=== PATIENT | female | born 1990 | race Caucasian/White ===

== ENCOUNTER → 2016-07-10 | Outpatient (CLI) | payer MEDICAID ==
[2016-07-10 19:53] LABS: BASO # 0.1 K/mm3 (0.0-0.2); BASO % 0.7 % (0.0-1.0); EOS # 0.3 K/mm3 (0.0-0.50); EOS % 2.9 % (0.0-3.0); LARGE UNSTAINED CELL # 0.2 K/mm3 (0.0-0.4); LARGE UNSTAINED CELL % 1.7 % (0.0-4.0); LYMPH # 2.8 K/mm3 (1.5-6.5); LYMPH % 25.9 % (24.0-44.0); MEAN CORPUSCULAR HEMOGLOBIN 30.2 pg (27.0-33.0); MEAN CORPUSCULAR HGB CONC 33.9 g/dl (32.0-36.5); MONO # 0.5 K/mm3 (0.0-0.8); NEUTROPHILS # 6.5 K/mm3 (1.8-7.7); NEUTROPHILS % 63.9 % (36.0-66.0); PLATELET COUNT, AUTOMATED 273 k/mm3 (150-450)
[2016-07-11 10:55] LABS: WHITE BLOOD COUNT 10.2 K/mm3 (4.0-10.0)
[2016-07-12 10:31] LABS: HBsAg Prenatal NEGATIVE (NEGATIVE)
== END ==
LOC: M WUC 15:54
PROVIDERS: ATTEND Specialist
DX: Z34.81 Encounter for supervision of other normal pregnancy, first trimester (principal)

== ENCOUNTER 2016-08-12 18:27 | Emergency (ER) | payer MEDICAID, OTHER ==
[~2016-08-12] VITALS: Ht 152.4 cm; Wt 77.1 kg
[2016-08-12] MEDS ORDERED: prenatal otc PO (18:44)
[2016-08-12] MEDS ORDERED: ZYRT10CA PO (18:44)
[2016-08-12 19:31] LABS: INR 0.94
[2016-08-12 19:33] LABS: ANION GAP 9 MEQ/L (8-16); BLOOD UREA NITROGEN 5 MG/DL (7-18); CALCIUM LEVEL 8.8 MG/DL (8.5-10.1); CARBON DIOXIDE LEVEL 25 MEQ/L (21-32); CHLORIDE LEVEL 106 MEQ/L (98-107); CREATININE FOR GFR 0.55 MG/DL (0.55-1.02); GLOMERULAR FILTRATION RATE > 60.0 (>60); GLUCOSE, FASTING 95 MG/DL (70-105); POTASSIUM SERUM 3.8 MEQ/L (3.5-5.1); SODIUM LEVEL 140 MEQ/L (136-145)
[2016-08-12 22:23] LABS: BASO % 0.3 % (0.0-1.0); EOS # 0.2 K/mm3 (0.0-0.50); EOS % 2.5 % (0.0-3.0); LARGE UNSTAINED CELL # 0.1 K/mm3 (0.0-0.4); LARGE UNSTAINED CELL % 1.4 % (0.0-4.0); LYMPH # 2.5 K/mm3 (1.5-6.5); LYMPH % 23.3 % (24.0-44.0); MEAN CORPUSCULAR HEMOGLOBIN 30.3 pg (27.0-33.0); MEAN CORPUSCULAR HGB CONC 34.5 g/dl (32.0-36.5); MEAN CORPUSCULAR VOLUME 87.8 fl (80.0-96.0); MONO # 0.5 K/mm3 (0.0-0.8); MONO % 4.5 % (0.0-5.0); NEUTROPHILS # 6.8 K/mm3 (1.8-7.7); NEUTROPHILS % 67.9 % (36.0-66.0); PLATELET COUNT, AUTOMATED 305 k/mm3 (150-450); RED CELL DISTRIBUTION WIDTH 12.2 % (11.5-14.5)
--- NOTE | 2016-08-12 22:30 | REPUSA ---
Clinical history: spotting, cramping. Findings: Real-time transabdominal and transvaginal ultrasound images of the pelvis were obtained. An anteverted uterus is noted, measuring 10.2 x 6.6 x 7.4 cm. There is a single intrauterine gestation with a mean sac diameter of 53.2 mm. A pole is noted. The crown rump length measures 29.9 mm, which measures to 9 weeks 6 days. heart tones are not identified at this time however. The uter us demonstrates normal echotexture and echogenicity. The right ovary measures 1.6 x 1.6 x 2.4 cm. Th e left ovary measures 2.1 x 1.9 x 2.3 cm. No adnexal masses are seen. Color Doppler flow is seen wit hin both ovaries. There is no evidence of free fluid. Impression: Findings consistent with demise.
[2016-08-12] MEDS ORDERED: PERC5TAB6 PO (23:24)
[2016-08-13] MEDS ORDERED: OXYCODONE/APAP 5MG/325MG(BULK FOR ED) 1 TABLET PO ONE
[2016-08-13 00:04] VITALS: BP 162/84
== END 2016-08-13 00:06 | disposition home or self-care (01) ==
LOC: M ED 21:42
DX: O03.4 Incomplete spontaneous abortion without complication (principal)

== ENCOUNTER → 2016-08-13 | Day surgery (SDC) | payer OTHER ==
[~2016-08-13] MED LIST: KETOROLAC 30 MG/ML VIAL (J1885) IV SCH; LIDOCAINE 2% INJ 100 MG/5 ML SDV (FOR ANES.) As Ordered ONE; LR 1,000 ML IV ONE; LR 1,000 ML IV SCH; METHYLERGONOVINE MALEATE 0.2 MG/ML VIAL (J2210) As Ordered ONE; METOCLOPRAMIDE INJ 10MG/2ML VIAL (J2765) As Ordered ONE; MIDAZOLAM INJ 2 MG/2 ML VIAL (J2250) As Ordered ONE; MORPHINE 2 MG/ML 1ML SYRINGE IV PRN; ONDANSETRON 4MG/2ML VIAL (J2405) As Ordered ONE; ONDANSETRON 4MG/2ML VIAL (J2405) IV PRN; PERC5TAB6 PO; PERCOCET 5MG/325MG TAB PO PRN; PROPOFOL 200 MG/20 ML VIAL As Ordered ONE; ZYRT10CA PO; dexameTHASONE 4 MG/ML 1ML VIAL (J1100) As Ordered ONE; fentaNYL 100 MCG/2 ML INJECTION (J3010) As Ordered ONE; fentaNYL 100 MCG/2 ML INJECTION (J3010) IV PRN; prenatal otc PO
[2016-08-13 14:03] LABS: MEAN CORPUSCULAR HEMOGLOBIN 30.4 pg (27.0-33.0); MEAN CORPUSCULAR HGB CONC 34.4 g/dl (32.0-36.5); MEAN CORPUSCULAR VOLUME 88.4 fl (80.0-96.0); RED CELL DISTRIBUTION WIDTH 12.2 % (11.5-14.5); WHITE BLOOD COUNT 12.2 K/mm3 (4.0-10.0)
--- NOTE | 2016-08-13 16:18 | RO ---
DATE OF PROCEDURE: 08/13/2016 PREPROCEDURE DIAGNOSIS: Intrauterine embryonic demise. POSTPROCEDURE DIAGNOSIS: Intrauterine embryonic demise. PROCEDURE: Sharp and suction dilatation and curettage. SURGEON: Franchesca Britt MD MOTOR BUS DRIVER: None. ANESTHESIA: General by laryngeal mask airway. SPECIMEN: intrauterine contents URINE: 400ml INTRAVENOUS FLUIDS: 100ml LR ESTIMATED BLOOD LOSS: 150ml INDICATION FOR OPERATION: Mrs. Macedo is a 26-year-old 1 at 11 weeks 3 days by a 7 week ultrasound presented to the emergency department this morning and left the bathroom, bleeding and cramping. Upon evaluation she was diagnosed with intrauterine embryonic demise at 9 weeks. She was counseled on her options for treatment and desired surgical option of dilatation and curettage. DESCRIPTION OF OPERATION: After informed consent was obtained and written consent was reviewed, the patient was brought to the operating room where laryngeal mask airway anesthesia was obtained. She was then placed in the lithotomy position, and was prepped and draped in a normal sterile fashion. A time out in the operating room was then performed identifying the patient, procedure to be performed as well as drug allergies. A bivalve speculum was then placed revealing the cervix. The anterior lip of the cervix was then grasped with a single tooth tenaculum. The cervix appeared already partially dilated. It was further dilated with Hanks dilators. A #9 curved uterine curette was then advanced into the cervical os to the level of the fundus and the uterus was curetted in a 360 degrees fashion with moderate amounts of tissue obtained. This was performed for a total of four times, with each time obtaining tissue. A sharp curette was then advanced into the cervical os and once again, uterus was curetted in a 360 degrees fashion with just minimal amounts of tissue obtained. A final pass with the suction curette was then performed productive of moderate amounts of blood. The curette was removed. Moderate amounts of bleeding. The uterus was compressed down, Methergine was given and hemostasis was achieved. The instruments were then removed from the patient's vagina. In and out catheter was then performed productive of 400 mL of clear urine. The patient was then taken out of lithotomy position, was awakened from general anesthesia and taken to recovery in stable condition. RED
[2016-08-13 17:40] VITALS: BP 138/73
== END | disposition home or self-care (01) ==
LOC: M SDC 11:19
PROVIDERS: ATTEND Obstetrics & Gynecology
DX: O02.1 Missed abortion (principal)

== ENCOUNTER → 2016-11-21 | Outpatient (CLI) | payer OTHER ==
[~2016-11-21] MED LIST changes: -KETOROLAC 30 MG/ML VIAL (J1885) IV SCH; -LIDOCAINE 2% INJ 100 MG/5 ML SDV (FOR ANES.) As Ordered ONE; -LR 1,000 ML IV ONE; -LR 1,000 ML IV SCH; -METHYLERGONOVINE MALEATE 0.2 MG/ML VIAL (J2210) As Ordered ONE; -METOCLOPRAMIDE INJ 10MG/2ML VIAL (J2765) As Ordered ONE; -MIDAZOLAM INJ 2 MG/2 ML VIAL (J2250) As Ordered ONE; -MORPHINE 2 MG/ML 1ML SYRINGE IV PRN; -ONDANSETRON 4MG/2ML VIAL (J2405) As Ordered ONE; -ONDANSETRON 4MG/2ML VIAL (J2405) IV PRN; +PERC5TAB12 PO; -PERC5TAB6 PO; -PERCOCET 5MG/325MG TAB PO PRN; -PROPOFOL 200 MG/20 ML VIAL As Ordered ONE; -dexameTHASONE 4 MG/ML 1ML VIAL (J1100) As Ordered ONE; -fentaNYL 100 MCG/2 ML INJECTION (J3010) As Ordered ONE; -fentaNYL 100 MCG/2 ML INJECTION (J3010) IV PRN
== END ==
LOC: M WUC 17:21
PROVIDERS: ATTEND Obstetrics & Gynecology
DX: Z32.01 Encounter for pregnancy test, result positive (principal)

== ENCOUNTER → 2016-11-23 | Outpatient (CLI) | payer OTHER | LOC: M WUC 08:52 | PROVIDERS: ATTEND Obstetrics & Gynecology | DX: Z32.01 Encounter for pregnancy test, result positive (principal) ==

== ENCOUNTER → 2016-12-26 | Outpatient (CLI) | payer OTHER ==
[2016-12-26 17:14] LABS: BASO % 0.2 % (0.0-1.0); EOS # 0.1 10^3/uL (0.0-0.50); EOS % 0.6 % (0.0-3.0); IMMATURE GRANULOCYTE % 0.3 % (0-0); LYMPH # 2.3 10^3/uL (1.5-6.5); LYMPH % 18.4 % (24.0-44.0); MEAN CORPUSCULAR HEMOGLOBIN 28.8 pg (27.0-33.0); MEAN CORPUSCULAR HGB CONC 33.1 g/dl (32.0-36.5); MEAN CORPUSCULAR VOLUME 87.1 fl (80.0-96.0); MONO # 0.7 10^3/uL (0.0-0.8); MONO % 5.9 % (0.0-5.0); NEUTROPHILS # 9.1 10^3/uL (1.8-7.7); NEUTROPHILS % 74.6 % (36.0-66.0); PLATELET COUNT, AUTOMATED 266 10^3/uL (150-450); WHITE BLOOD COUNT 12.3 10^3/uL (4.0-10.0)
[2016-12-27 11:03] LABS: HBsAg Prenatal NEGATIVE (NEGATIVE)
== END ==
LOC: M WUC 14:06
PROVIDERS: ATTEND Advanced Practice Midwife
DX: Z34.81 Encounter for supervision of other normal pregnancy, first trimester (principal); Z3A.00 Weeks of gestation of pregnancy not specified

== ENCOUNTER → 2017-02-18 | Outpatient (CLI) | payer OTHER ==
--- NOTE | 2017-02-18 10:14 | REP ---
Obstetric sonography: History: Supervision of for anatomy. Findings: Scanning through the gravid uterus demonstrates a viable single intrauterine gestation in a variable lie. motion is observed and heart rate is recorded at 147 beats per minute. An anterior grade 0 placenta is seen without evidence of previa. Amniotic fluid is subjectively normal. Closed cervical length is measured at 5.0 cm transabdominally. No extrauterine abnormalities observed. No anomaly is seen. The following anatomic structures are identified and felt to be sonographically unremarkable: cranium, choroid plexus, cavum, cerebellum and posterior fossa, face and profile, lungs, four-chamber heart with left and right ventricular outflow tract views, diaphragm, left-sided stomach, abdominal wall cord insertion, three-vessel umbilical cord, kidneys and bladder, spine, upper and lower extremities. Biometry chart: BPD 4.0 cm 18 weeks 1 day Head circumference 14.5 cm 17 weeks 5 days Abdominal circumference 12.8 cm 18 weeks 3 days Femur length 2.5 cm 17 weeks 4 days Humeral length 2.7 cm 18 weeks 4 days HC/AC ratio normal 1.13. Cephalic index normal 0.78. Estimated weight 218 grams, 0 pounds 7 ounces, 56th percentile for 17 weeks 5 days. Impression: Viable single intrauterine gestation at 18 weeks 1 day by today's composite sonographic criteria. CARLA by today's sonographic criteria July 21, 2017. Signed by Arnav Clifford MD 02/18/2017 03:58 P
== END ==
LOC: M RAD 07:57
PROVIDERS: ATTEND Advanced Practice Midwife
DX: Z34.82 Encounter for supervision of other normal pregnancy, second trimester (principal); Z3A.18 18 weeks gestation of pregnancy

== ENCOUNTER 2017-03-12 18:27 | Outpatient (CLI) | payer OTHER | END 2017-03-12 19:55 | disposition home or self-care (01) | LOC: M LDO 18:27 | DX: O99.89 Other specified diseases and conditions complicating pregnancy, childbirth and the puerperium (principal); R10.30 Lower abdominal pain, unspecified; W01.0XXA Fall on same level from slipping, tripping and stumbling without subsequent striking against object, initial encounter; Y92.9 Unspecified place or not applicable; Y93.K1 Activity, walking an animal; Z3A.20 20 weeks gestation of pregnancy; Z79.899 Other long term (current) drug therapy | CPT/HCPCS: 76815 ==

== ENCOUNTER → 2017-03-29 | Outpatient (REF) | payer OTHER | LOC: M LAB 14:55 | DX: R05 Cough (principal) | CPT/HCPCS: 87804 ==

== ENCOUNTER → 2017-04-24 | Outpatient (REF) | payer OTHER | LOC: M LAB REF 13:22 | DX: Z34.82 Encounter for supervision of other normal pregnancy, second trimester (principal) ==

== ENCOUNTER → 2017-04-26 | Outpatient (CLI) | payer OTHER ==
[2017-04-26 11:55] LABS: HEMATOCRIT 33.5 % (36.0-47.0); MEAN CORPUSCULAR HEMOGLOBIN 30.4 pg (27.0-33.0); MEAN CORPUSCULAR HGB CONC 32.8 g/dl (32.0-36.5); MEAN CORPUSCULAR VOLUME 92.5 fl (80.0-96.0); PLATELET COUNT, AUTOMATED 192 10^3/uL (150-450); RED BLOOD COUNT 3.62 10^6/uL (4.00-5.40); RED CELL DISTRIBUTION WIDTH 12.3 % (11.5-14.5); WHITE BLOOD COUNT 10.4 10^3/uL (4.0-10.0)
[2017-04-28 06:24] LABS: GLUCOSE CHALLENGE TEST 1 HOUR 109 MG/DL (LESS THAN 140)
== END ==
LOC: M WUC 10:35
DX: Z34.82 Encounter for supervision of other normal pregnancy, second trimester (principal)

== ENCOUNTER → 2017-05-07 | Outpatient (CLI) | payer OTHER ==
[2017-05-07 13:26] LABS: HEMATOCRIT 33.1 % (36.0-47.0); HEMOGLOBIN 11.2 g/dl (12.0-16.0); MEAN CORPUSCULAR HEMOGLOBIN 30.8 pg (27.0-33.0); MEAN CORPUSCULAR HGB CONC 33.8 g/dl (32.0-36.5); MEAN CORPUSCULAR VOLUME 90.9 fl (80.0-96.0); PLATELET COUNT, AUTOMATED 218 10^3/uL (150-450); RED BLOOD COUNT 3.64 10^6/uL (4.00-5.40); RED CELL DISTRIBUTION WIDTH 12.3 % (11.5-14.5); WHITE BLOOD COUNT 11.7 10^3/uL (4.0-10.0)
[2017-05-07 13:46] LABS: TOTAL PROTEIN,RANDOM URINE 27.3 MG/DL (0.0-12.0)
[2017-05-07 13:56] LABS: ALT/SGPT 16 U/L (12-78); AST/SGOT 13 U/L (7-37); BILIRUBIN,TOTAL 0.2 MG/DL (0.2-1.0); GLOMERULAR FILTRATION RATE > 60.0 (>60); LDH LACTATE DEHYDROGENASE 196 U/L (84-246); URIC ACID 3.4 MG/DL (2.6-6.0)
== END ==
LOC: M LAB 12:35
DX: O13.2 Gestational [pregnancy-induced] hypertension without significant proteinuria, second trimester (principal); O26.892 Other specified pregnancy related conditions, second trimester; M79.604 Pain in right leg; Z3A.00 Weeks of gestation of pregnancy not specified
CPT/HCPCS: 93971

== ENCOUNTER → 2017-05-09 | Outpatient (CLI) | payer OTHER, MEDICAID ==
[2017-05-09 16:42] LABS: TOTAL VOLUME, URINE 1100 ML
[2017-05-09 17:07] LABS: TOTAL PROTEIN 24 HOUR URINE 177.1 MG/24HR (50-150); URINE TOTAL PROTEIN 16.1 MG/DL (0-12)
[2017-05-09 17:10] LABS: CREATININE CLEARANCE, URINE 229.2 ML/MIN (75-115); CREATININE, SERUM 0.4 MG/DL (0.6-1.0)
== END ==
LOC: M LAB 15:24
DX: Z34.82 Encounter for supervision of other normal pregnancy, second trimester (principal); Z3A.00 Weeks of gestation of pregnancy not specified
CPT/HCPCS: 82575

== ENCOUNTER → 2017-06-23 | Outpatient (CLI) | payer OTHER, MEDICAID | LOC: M RAD 09:28 | DX: O13.3 Gestational [pregnancy-induced] hypertension without significant proteinuria, third trimester (principal); Z3A.35 35 weeks gestation of pregnancy | CPT/HCPCS: 76815 ==

== ENCOUNTER 2017-06-30 09:15 | Outpatient (CLI) | payer OTHER, MEDICAID ==
[2017-06-30 10:21] LABS: HEMATOCRIT 32.7 % (36.0-47.0); HEMOGLOBIN 10.6 g/dl (12.0-15.5); MEAN CORPUSCULAR HEMOGLOBIN 28.5 pg (27.0-33.0); MEAN CORPUSCULAR HGB CONC 32.4 g/dl (32.0-36.5); MEAN CORPUSCULAR VOLUME 87.9 fl (80.0-96.0); PLATELET COUNT, AUTOMATED 178 10^3/uL (150-450); RED BLOOD COUNT 3.72 10^6/uL (4.00-5.40); RED CELL DISTRIBUTION WIDTH 12.7 % (11.5-14.5); WHITE BLOOD COUNT 8.2 10^3/uL (4.0-10.0)
[2017-06-30 10:29] LABS: TOTAL PROTEIN,RANDOM URINE 10.4 MG/DL (0.0-12.0)
[2017-06-30 10:29] LABS: CREATININE,RANDOM URINE 36.2 MG/DL
[2017-06-30 10:51] LABS: ALT/SGPT 13 U/L (12-78); AST/SGOT 14 U/L (7-37); BILIRUBIN,TOTAL 0.2 MG/DL (0.2-1.0); CREATININE FOR GFR 0.47 MG/DL (0.55-1.30); GLOMERULAR FILTRATION RATE > 60.0 (>60); LDH LACTATE DEHYDROGENASE 177 U/L (84-246); URIC ACID 5.1 MG/DL (2.6-6.0)
== END 2017-06-30 12:10 | disposition home or self-care (01) ==
LOC: M LDO 09:15
DX: O26.893 Other specified pregnancy related conditions, third trimester (principal); O13.3 Gestational [pregnancy-induced] hypertension without significant proteinuria, third trimester; Z3A.36 36 weeks gestation of pregnancy
CPT/HCPCS: 59025

== ENCOUNTER → 2017-06-30 | Outpatient (REF) | payer OTHER, MEDICAID | LOC: M LAB REF 13:09 | DX: Z34.83 Encounter for supervision of other normal pregnancy, third trimester (principal) | CPT/HCPCS: 87186 ==

== ENCOUNTER 2017-07-07 08:56 | Inpatient (IN) | payer OTHER, MEDICAID ==
[2017-07-07] MEDS ORDERED: PENICILLIN G POTASSIUM IV 5 MU in D5W MINI-BAG PLUS 100 ML IV (09:49)
[2017-07-07] MEDS: miSOPROStol 50 MCG 1/2 TAB (S0191) PO ×4 (10:29→22:53)
[2017-07-07 11:05] LABS: HEMATOCRIT 33.7 % (36.0-47.0); MEAN CORPUSCULAR HEMOGLOBIN 28.3 pg (27.0-33.0); MEAN CORPUSCULAR HGB CONC 32.6 g/dl (32.0-36.5); MEAN CORPUSCULAR VOLUME 86.6 fl (80.0-96.0); PLATELET COUNT, AUTOMATED 171 10^3/uL (150-450); RED BLOOD COUNT 3.89 10^6/uL (4.00-5.40); RED CELL DISTRIBUTION WIDTH 12.6 % (11.5-14.5); WHITE BLOOD COUNT 9.4 10^3/uL (4.0-10.0)
[2017-07-07 11:30] LABS: ALT/SGPT 11 U/L (12-78); AST/SGOT 18 U/L (7-37); BILIRUBIN,TOTAL 0.1 MG/DL (0.2-1.0); CREATININE FOR GFR 0.46 MG/DL (0.55-1.30); GLOMERULAR FILTRATION RATE > 60.0 (>60); LDH LACTATE DEHYDROGENASE 239 U/L (84-246); URIC ACID 4.9 MG/DL (2.6-6.0)
[2017-07-07] MEDS ORDERED: PENICILLIN G POTASSIUM IV 2.5 MU in APPROPRIATE DILUENT 1 EA IV (14:00)
[2017-07-07] MEDS ORDERED: MAGNESIUM SULFATE 4% INJ 20GM/500ML (40MG/ML) (J3475) As Ordered (20:49)
[2017-07-07] MEDS: PROMETHAZINE INJ 25 MG/ML VIAL (J2550) IV (22:53)
[2017-07-08] MEDS: miSOPROStol 50 MCG 1/2 TAB (S0191) PO ×4 (02:53→14:00)
[2017-07-08] MEDS ORDERED: OXYTOCIN 30 UNITS IN 0.9% NaCl 500ML IV BAG (J2590) As Ordered (14:39)
[2017-07-08] MEDS ORDERED: PENICILLIN G POTASSIUM 5 MU VIAL As Ordered (18:22)
[2017-07-08] MEDS: OXYTOCIN DRIP 30 UNITS in APPROPRIATE DILUENT 1 EA IV (18:29)
[2017-07-08] MEDS: LR 1,000 ML IV (18:29)
[2017-07-08] MEDS: PENICILLIN G POTASSIUM IV 5 MU in D5W MINI-BAG PLUS 100 ML IV (18:30)
[2017-07-08] MEDS: PENICILLIN G POTASSIUM IV 2.5 MU in APPROPRIATE DILUENT 1 EA IV (23:54)
[2017-07-09] MEDS: PROMETHAZINE INJ 25 MG/ML VIAL (J2550) IV (00:24)
[2017-07-09] MEDS: BUTORPHANOL 2 MG/ML INJ (J0595) IV ×2 (00:25→12:12)
[2017-07-09] MEDS: LR 1,000 ML IV ×5 (02:26→23:50)
[2017-07-09 03:31] LABS: HEMATOCRIT 32.3 % (36.0-47.0); HEMOGLOBIN 10.2 g/dl (12.0-15.5); MEAN CORPUSCULAR HEMOGLOBIN 27.9 pg (27.0-33.0); MEAN CORPUSCULAR HGB CONC 31.6 g/dl (32.0-36.5); MEAN CORPUSCULAR VOLUME 88.3 fl (80.0-96.0); PLATELET COUNT, AUTOMATED 181 10^3/uL (150-450); RED BLOOD COUNT 3.66 10^6/uL (4.00-5.40); RED CELL DISTRIBUTION WIDTH 12.7 % (11.5-14.5); WHITE BLOOD COUNT 14.3 10^3/uL (4.0-10.0)
[2017-07-09] MEDS: PENICILLIN G POTASSIUM IV 2.5 MU in APPROPRIATE DILUENT 1 EA IV (03:36)
[2017-07-09] MEDS ORDERED: FENTANYL 2MCG/ML ROPIVACAINE 0.2% IN 0.9% NACL 200ML IVBAG As Ordered (03:46)
[2017-07-09] MEDS ORDERED: EPIDURAL COMMENT XX (03:52)
[2017-07-09] MEDS ORDERED: ONDANSETRON 4MG/2ML VIAL (J2405) IV ×2 (03:52→11:30)
[2017-07-09] MEDS ORDERED: diphenhydrAMINE INJ 50MG/ML VIAL (J1200) IV (03:52)
[2017-07-09] MEDS ORDERED: REFRIGERATOR IV KEYS XX (03:52)
[2017-07-09] MEDS ORDERED: ePHEDrine SULFATE 25 MG/5 ML(5MG/ML) SYRINGE IV (03:52)
[2017-07-09] MEDS ORDERED: FENTANYL/ROPIVACAINE/NACL BAG 200 ML EPIDURAL (03:52)
[2017-07-09] MEDS ORDERED: LACTATED RINGER'S 1000 ML IV (03:52)
[2017-07-09] MEDS ORDERED: EPIDURAL/PCA KEYS XX (03:52)
[2017-07-09] MEDS ORDERED: NALOXONE INJ 0.4 MG/1 ML VIAL (J2310) IV (03:52)
[2017-07-09] MEDS ORDERED: ceFAZolin 2 GM/D5W 50 ML IV BAG (J0690 PER 500MG) As Ordered (07:44)
[2017-07-09] MEDS ORDERED: AZITHROMYCIN INJ 500MG VIAL (J0456) As Ordered (07:44)
[2017-07-09] MEDS ORDERED: BICITRA 30ML SOLN UDC As Ordered (07:44)
[2017-07-09] MEDS: AZITHROMYCIN INJ 500 MG, VIAL MATE ADAPTER 1 EACH in D5W 250 ML IV (08:00)
[2017-07-09] MEDS: BICITRA 30ML SOLN UDC PO (08:02)
[2017-07-09] MEDS ORDERED: OXYTOCIN INJ 10 UNITS/ML VIAL (J2590) As Ordered ×7 (08:28→10:03)
[2017-07-09] MEDS ORDERED: PHENYLephrine HCL 500 MCG/5 ML (100MCG/ML) SYRINGE (J2370) As Ordered ×2 (08:28→09:03)
[2017-07-09] MEDS ORDERED: LIDOCAINE 2% W/EPIN INJ 20ML **PRES FREE As Ordered (08:28)
[2017-07-09] MEDS ORDERED: SODIUM BICARBONATE 8.4% INJ 50 ML SYRINGE As Ordered (08:28)
[2017-07-09] MEDS ORDERED: ONDANSETRON 4MG/2ML VIAL (J2405) As Ordered (08:28)
[2017-07-09] MEDS ORDERED: KETOROLAC 60 MG/2 ML VIAL (J1885) As Ordered (08:50)
[2017-07-09] MEDS ORDERED: MORPHINE PRES-FREE INJ 10 MG/10 ML VIAL (J2274) As Ordered (08:50)
[2017-07-09] MEDS ORDERED: miSOPROStol 200 MCG TAB (S0191) As Ordered (09:34)
[2017-07-09] MEDS ORDERED: METOCLOPRAMIDE INJ 10MG/2ML VIAL (J2765) As Ordered (09:45)
[2017-07-09 10:01] LABS: IMMEDIATE SPIN CROSSMATCH 1
[2017-07-09 10:01] LABS: IMMEDIATE SPIN CROSSMATCH 1 2
[2017-07-09 10:40] LABS: HEMATOCRIT 31.8 % (36.0-47.0); HEMOGLOBIN 10.2 g/dl (12.0-15.5); MEAN CORPUSCULAR HEMOGLOBIN 28.2 pg (27.0-33.0); MEAN CORPUSCULAR HGB CONC 32.1 g/dl (32.0-36.5); MEAN CORPUSCULAR VOLUME 87.8 fl (80.0-96.0); PLATELET COUNT, AUTOMATED 194 10^3/uL (150-450); RED BLOOD COUNT 3.62 10^6/uL (4.00-5.40); RED CELL DISTRIBUTION WIDTH 12.6 % (11.5-14.5); WHITE BLOOD COUNT 17.9 10^3/uL (4.0-10.0)
[2017-07-09 10:54] LABS: PROTHROMBIN TIME 13.3 SECONDS (12.4-14.5)
[2017-07-09 10:55] LABS: FIBRINOGEN 389 MG/DL (221-452); PARTIAL THROMBOPLASTIN TIME 26.3 SECONDS (26.8-37.9)
[2017-07-09] MEDS: METHYLERGONOVINE MALEATE 0.2 MG/ML VIAL (J2210) IM (11:30)
[2017-07-09] MEDS ORDERED: PROMETHAZINE 25 MG TAB PO (11:30)
[2017-07-09] MEDS: CARBOPROST TROMETHAMINE 250 MCG/ML AMP IM (11:30)
[2017-07-09] MEDS: miSOPROStol 100 MCG TAB (S0191) PR (11:30)
[2017-07-09] MEDS ORDERED: RHOGAM 300 MCG (1500 IU) INJ (J2790) IM (11:30)
[2017-07-09] MEDS ORDERED: MEASLES,MUMPS,RUBELLA VACCINE INJ (MMR-II) (90707) SC (11:30)
[2017-07-09] MEDS ORDERED: PERCOCET 5MG/325MG TAB PO (11:30)
[2017-07-09] MEDS: OXYTOCIN DRIP 30 UNITS in APPROPRIATE DILUENT 1 EA IV ×2 (12:36→19:41)
[2017-07-09] MEDS: KETOROLAC 30 MG/ML VIAL (J1885) IV (17:04)
[2017-07-09 18:42] LABS: HEMATOCRIT 25.7 % (36.0-47.0); HEMOGLOBIN 8.4 g/dl (12.0-15.5); MEAN CORPUSCULAR HEMOGLOBIN 28.6 pg (27.0-33.0); MEAN CORPUSCULAR HGB CONC 32.7 g/dl (32.0-36.5); MEAN CORPUSCULAR VOLUME 87.4 fl (80.0-96.0); PLATELET COUNT, AUTOMATED 142 10^3/uL (150-450); RED BLOOD COUNT 2.94 10^6/uL (4.00-5.40); RED CELL DISTRIBUTION WIDTH 12.8 % (11.5-14.5); WHITE BLOOD COUNT 12.7 10^3/uL (4.0-10.0)
[2017-07-09 18:47] LABS: ALBUMIN 1.6 GM/DL (3.2-5.2); ALBUMIN/GLOBULIN RATIO 0.57 (1.00-1.93); ALKALINE PHOSPHATASE 104 U/L (45-117); ALT/SGPT 9 U/L (12-78); ANION GAP 8 MEQ/L (8-16); AST/SGOT 21 U/L (7-37); BILIRUBIN,TOTAL 0.2 MG/DL (0.2-1.0); BLOOD UREA NITROGEN 6 MG/DL (7-18); CALCIUM LEVEL 7.2 MG/DL (8.5-10.1); CARBON DIOXIDE LEVEL 22 MEQ/L (21-32); CHLORIDE LEVEL 109 MEQ/L (98-107); CREATININE FOR GFR 0.62 MG/DL (0.55-1.30); GLOMERULAR FILTRATION RATE > 60.0 (>60); GLUCOSE, FASTING 78 MG/DL (70-100); POTASSIUM SERUM 3.9 MEQ/L (3.5-5.1); SODIUM LEVEL 139 MEQ/L (136-145); TOTAL PROTEIN 4.4 GM/DL (6.4-8.2)
[2017-07-09] MEDS: PERCOCET 5MG/325MG TAB PO ×2 (19:44→23:49)
[2017-07-09] MEDS: DOCUSATE SODIUM 100 MG CAP PO (21:54)
[2017-07-09 23:18] LABS: HEMATOCRIT 24.7 % (36.0-47.0); HEMOGLOBIN 8.2 g/dl (12.0-15.5); MEAN CORPUSCULAR HEMOGLOBIN 28.9 pg (27.0-33.0); MEAN CORPUSCULAR HGB CONC 33.2 g/dl (32.0-36.5); PLATELET COUNT, AUTOMATED 129 10^3/uL (150-450); RED BLOOD COUNT 2.84 10^6/uL (4.00-5.40); RED CELL DISTRIBUTION WIDTH 13.1 % (11.5-14.5); WHITE BLOOD COUNT 11.4 10^3/uL (4.0-10.0)
[2017-07-10] MEDS: PERCOCET 5MG/325MG TAB PO ×3 (04:09→18:53)
[2017-07-10 04:43] LABS: HEMATOCRIT 24.4 % (36.0-47.0); MEAN CORPUSCULAR HEMOGLOBIN 28.9 pg (27.0-33.0); MEAN CORPUSCULAR HGB CONC 32.8 g/dl (32.0-36.5); MEAN CORPUSCULAR VOLUME 88.1 fl (80.0-96.0); PLATELET COUNT, AUTOMATED 132 10^3/uL (150-450); RED BLOOD COUNT 2.77 10^6/uL (4.00-5.40); RED CELL DISTRIBUTION WIDTH 13.2 % (11.5-14.5); WHITE BLOOD COUNT 9.4 10^3/uL (4.0-10.0)
[2017-07-10] MEDS: DOCUSATE SODIUM 100 MG CAP PO (07:58)
[2017-07-10] MEDS: PRENATAL VITAMINS CHEWABLE TABLET PO ×2 (08:05→09:00)
[2017-07-10] MEDS: LR 1,000 ML IV ×2 (08:05→08:06)
[2017-07-10] MEDS ORDERED: MEASLES,MUMPS,RUBELLA VACCINE INJ (MMR-II) (90707) SC (08:15)
[2017-07-10] MEDS ORDERED: RHOGAM 300 MCG (1500 IU) INJ (J2790) IM (08:15)
[2017-07-10] MEDS ORDERED: ONDANSETRON 4MG/2ML VIAL (J2405) IV (08:15)
[2017-07-10] MEDS: FERROUS SULFATE 325MG TAB PO (09:36)
[2017-07-10] MEDS: KETOROLAC 30 MG/ML VIAL (J1885) IV (09:36)
[2017-07-10] MEDS: IBUPROFEN 800 MG TAB PO (17:14)
[2017-07-11] MEDS: PERCOCET 5MG/325MG TAB PO ×4 (02:24→21:41)
[2017-07-11] MEDS: IBUPROFEN 800 MG TAB PO (06:27)
[2017-07-11 06:35] LABS: HEMATOCRIT 22.1 % (36.0-47.0); HEMOGLOBIN 7.2 g/dl (12.0-15.5); MEAN CORPUSCULAR HEMOGLOBIN 28.8 pg (27.0-33.0); MEAN CORPUSCULAR HGB CONC 32.6 g/dl (32.0-36.5); MEAN CORPUSCULAR VOLUME 88.4 fl (80.0-96.0); PLATELET COUNT, AUTOMATED 139 10^3/uL (150-450); RED CELL DISTRIBUTION WIDTH 13.3 % (11.5-14.5); WHITE BLOOD COUNT 8.2 10^3/uL (4.0-10.0)
[2017-07-11] MEDS: PRENATAL VITAMINS CHEWABLE TABLET PO (08:23)
[2017-07-11] MEDS: FERROUS SULFATE 325MG TAB PO (08:23)
[2017-07-11] MEDS ORDERED: METHYLERGONOVINE MALEATE 0.2 MG/ML VIAL (J2210) IM (09:00)
[2017-07-11] MEDS ORDERED: CARBOPROST TROMETHAMINE 250 MCG/ML AMP IM (09:00)
[2017-07-11] MEDS ORDERED: CARBOPROST TROMETHAMINE 250 MCG/ML AMP As Ordered (09:02)
[2017-07-11] MEDS ORDERED: IBUPROFEN 800 MG TAB PO (11:00)
[2017-07-11] MEDS: DOCUSATE SODIUM 100 MG CAP PO (13:01)
[2017-07-11] MEDS: MOM 30ML SUSPENSION UDC PO ×2 (17:42→21:41)
[2017-07-12] MEDS: PERCOCET 5MG/325MG TAB PO (03:51)
[2017-07-12] MEDS: FERROUS SULFATE 325MG TAB PO (09:07)
[2017-07-12] MEDS: PRENATAL VITAMINS CHEWABLE TABLET PO (09:07)
== END 2017-07-12 13:15 | disposition home or self-care (01) | DRG 766 ==
LOC: M LDI 08:56 → M ICU 07-09 10:46 → M OBS 07-10 11:05
PROC: 10D00Z1 Extraction of Products of Conception, Low, Open Approach (ICD-10-PCS; principal; 2017-07-09 08:09)
PROC: 10907ZC Drainage of Amniotic Fluid, Therapeutic from Products of Conception, Via Natural or Artificial Opening (ICD-10-PCS; 2017-07-09 08:09)
PROC: 3E0P7GC Introduction of Other Therapeutic Substance into Female Reproductive, Via Natural or Artificial Opening (ICD-10-PCS; 2017-07-09 08:09)
PROC: 30253N1 (ICD-10-PCS; 2017-07-09 08:09)
DX: O13.4 Gestational [pregnancy-induced] hypertension without significant proteinuria, complicating childbirth (principal); O72.1 Other immediate postpartum hemorrhage; O99.824 Streptococcus B carrier state complicating childbirth; Z3A.37 37 weeks gestation of pregnancy; O99.334 Smoking (tobacco) complicating childbirth; O61.0 Failed medical induction of labor; F17.210 Nicotine dependence, cigarettes, uncomplicated; O62.0 Primary inadequate contractions; Z37.0 Single live birth

== ENCOUNTER 2017-07-21 20:47 | Emergency (ER) | payer MEDICAID, OTHER ==
[2017-07-21] MEDS: NS 1,000 ML IV ×3 (21:26)
[2017-07-21 21:30] LABS: BASO # 0.1 10^3/uL (0.0-0.2); BASO % 0.7 % (0.0-1.0); EOS # 0.3 10^3/uL (0.0-0.50); EOS % 4.1 % (0.0-3.0); HEMATOCRIT 34.9 % (36.0-47.0); HEMOGLOBIN 11.3 g/dl (12.0-15.5); IMMATURE GRANULOCYTE % 0.4 % (0-3.0); LYMPH # 3.1 10^3/uL (1.5-6.5); LYMPH % 37.9 % (24.0-44.0); MEAN CORPUSCULAR HEMOGLOBIN 28.5 pg (27.0-33.0); MEAN CORPUSCULAR HGB CONC 32.4 g/dl (32.0-36.5); MEAN CORPUSCULAR VOLUME 87.9 fl (80.0-96.0); MONO # 0.4 10^3/uL (0.0-0.8); MONO % 5.1 % (0.0-5.0); NEUTROPHILS # 4.2 10^3/uL (1.8-7.7); NEUTROPHILS % 51.8 % (36.0-66.0); PLATELET COUNT, AUTOMATED 331 10^3/uL (150-450); RED BLOOD COUNT 3.97 10^6/uL (4.00-5.40); RED CELL DISTRIBUTION WIDTH 13.5 % (11.5-14.5); WHITE BLOOD COUNT 8.1 10^3/uL (4.0-10.0)
[2017-07-21 21:41] LABS: INR 0.99; PROTHROMBIN TIME 13.2 SECONDS (12.4-14.5)
[2017-07-21 21:42] LABS: PARTIAL THROMBOPLASTIN TIME 29.3 SECONDS (26.8-37.9)
[2017-07-21 21:59] LABS: LACTIC ACID SEPSIS PROTOCOL 1.9 MMOL/L (0.4-2.0)
[2017-07-21] MEDS ORDERED: MORPHINE 10 MG/ML 1ML VIAL (J2270) IV ×3 (23:15)
[2017-07-21 23:33] LABS: ANION GAP 5 MEQ/L (8-16); BLOOD UREA NITROGEN 8 MG/DL (7-18); CALCIUM LEVEL 8.6 MG/DL (8.5-10.1); CARBON DIOXIDE LEVEL 27 MEQ/L (21-32); CHLORIDE LEVEL 107 MEQ/L (98-107); CREATININE FOR GFR 0.72 MG/DL (0.55-1.30); GLOMERULAR FILTRATION RATE > 60.0 (>60); GLUCOSE, FASTING 90 MG/DL (70-100); SODIUM LEVEL 139 MEQ/L (136-145)
[2017-07-21] MEDS ORDERED: ISOVUE-370 76% 100ML VIAL (Q9967) As Ordered ×3 (23:59)
== END 2017-07-22 01:58 | disposition home or self-care (01) ==
LOC: M ED 07-22 01:58
DX: N92.0 Excessive and frequent menstruation with regular cycle (principal); Z98.890 Other specified postprocedural states
CPT/HCPCS: Q9967

== ENCOUNTER → 2019-01-25 | Outpatient (REF) | payer OTHER ==
[~2019-01-25] MED LIST changes: +ASPI81TA26 PO; +COLA100C5 PO; +DIPH12.527 PO; +FERR325T3 PO; +IBUP80TA PO; +IRON65TA PO; +MOTR200T44 PO; +OXYC1TAB23 PO; +PRENTAB9 PO
== END ==
LOC: M LAB REF 17:17
PROVIDERS: ATTEND Obstetrics & Gynecology
DX: Z12.4 Encounter for screening for malignant neoplasm of cervix (principal)

== ENCOUNTER → 2019-05-05 | Outpatient (CLI) | payer OTHER ==
[2019-05-05 17:03] LABS: ALT/SGPT 22 U/L (12-78); BILIRUBIN,TOTAL 0.2 MG/DL (0.2-1.0); CREATININE FOR GFR 0.51 MG/DL (0.55-1.30); GLOMERULAR FILTRATION RATE > 60.0 (>60); LDH LACTATE DEHYDROGENASE 161 U/L (84-246); URIC ACID 3.4 MG/DL (2.6-6.0)
[2019-05-05 17:10] LABS: BASO % 0.4 % (0.0-1.0); EOS # 0.1 10^3/uL (0.0-0.5); EOS % 0.8 % (0.0-3.0); HEMOGLOBIN 11.5 g/dl (12.0-15.5); LYMPH # 2.8 10^3/uL (1.5-5.0); LYMPH % 25.1 % (24.0-44.0); MEAN CORPUSCULAR HEMOGLOBIN 28.5 pg (27.0-33.0); MEAN CORPUSCULAR HGB CONC 31.9 g/dl (32.0-36.5); MEAN CORPUSCULAR VOLUME 89.3 fl (80.0-96.0); MONO # 0.7 10^3/uL (0.0-0.8); MONO % 6.2 % (0.0-5.0); NEUTROPHILS # 7.3 10^3/uL (1.5-8.5); NEUTROPHILS % 66.9 % (36.0-66.0); PLATELET COUNT, AUTOMATED 261 10^3/uL (150-450); RED BLOOD COUNT 4.03 10^6/uL (4.00-5.40)
[2019-05-05 17:23] LABS: RUBELLA IgG QUALITATIVE IMMUNE (IMMUNE)
[2019-05-05 17:28] LABS: TOTAL PROTEIN,RANDOM URINE 9.4 MG/DL (0.0-12.0)
[2019-05-05 17:52] LABS: HIV 1&2 SCREEN CENTAUR NEGATIVE (NEGATIVE)
[2019-05-05 18:50] LABS: CHLAMYDIA DNA AMPLIFICATION NEGATIVE (NEGATIVE); GC DNA AMPLIFICATION NEGATIVE (NEGATIVE)
[2019-05-07 08:31] LABS: HEPATITIS B SURFACE ANTIGEN NEGATIVE (NEGATIVE)
[2019-05-07 09:00] LABS: HEPATITIS C VIRUS ABY INDEX < 0.0 INDEX (<0.8)
== END ==
LOC: M WUC 13:13
PROVIDERS: ATTEND Advanced Practice Midwife
DX: O34.211 Maternal care for low transverse scar from previous cesarean delivery (principal)

== ENCOUNTER → 2019-07-20 | Outpatient (CLI) | payer OTHER ==
--- NOTE | 2019-07-21 03:00 | REP ---
Clinical: Anatomical evaluation. Comparison: None . Findings: Examination demonstrates a single live intrauterine in transverse (head to maternal right) presentation. motion is identified by technologist. Placenta is noted posterior and grade I without evidence for placenta previa or abruption. Amniotic fluid volume is normal. Cervix measures 4.2 cm in length and appears closed. No evidence for nuchal cord. Gestational age by LMP 18 weeks 5 days with CARLA 12/16/2019 . Gestational age by current measurements 18 weeks 1 day with CARLA 12/20/2019 . FHR equals 153 beats per minute. BPD 4.0 cm 18 weeks 1 day HC 14.9 cm 18 weeks 0 days AC 12.9 cm 18 weeks 3 days FL 2.7 cm 18 weeks 1 day HL 2.7 cm 18 weeks 4 days HC/AC ratio 1.16 Estimated weight 231 grams ( 31st percentile). Anatomical assessment demonstrates normal structures including cranium, choroid plexus, cavum, cerebellum/posterior fossa, facial features, lungs, four-chamber heart/ventricular outflow tracts, diaphragm, stomach, cord insertion/three-vessel cord, kidneys/bladder, and extremities. Impression: Single live intrauterine in transverse lie demonstrating appropriate interval growth. Limited evaluation of the spine. Remainder of the anatomical assessment is complete and normal.
== END ==
LOC: M WHC 09:04
PROVIDERS: ATTEND Advanced Practice Midwife
DX: O34.211 Maternal care for low transverse scar from previous cesarean delivery (principal); Z3A.18 18 weeks gestation of pregnancy

== ENCOUNTER → 2019-08-06 | Outpatient (CLI) | payer OTHER ==
--- NOTE | 2019-08-07 10:43 | REP ---
OBSTETRIC SONOGRAPHY: HISTORY: Supervision of , follow-up anatomy. Comparison sonography, July 20, 2019. FINDINGS: Scanning through the gravid uterus demonstrates a single living intrauterine gestation in a transverse lie, head to the maternal left. motion is observed and heart rate is recorded at 146 beats per minute. A posterior grade 0 placenta is seen without evidence of previa. Amniotic fluid is subjectively normal. Closed cervical length measured transabdominally is 3.6 cm. No extrauterine abnormalities observed. There has been appropriate interval growth. spine was imaged adequately today and is felt to be unremarkable. BIOMETRY CHART: BPD 4.9 cm = 20 weeks 6 days Head circumference 18.5 cm = 20 weeks 6 days Abdominal circumference 16.0 cm = 21 weeks 1 day Femur length 3.5 cm = 21 weeks 0 days Humeral length 3.3 cm = 21 weeks 1 day HC/AC ratio normal 1.15 Cephalic index normal 0.74 Estimated weight 394 grams, 0 pounds 13 ounces, 43rd percentile for 21 weeks 1 day. IMPRESSION: Viable single intrauterine gestation at 20 weeks 5 days by today's composite sonographic criteria. Expected gestational age estimate based on prior sonography is 21 weeks 1 day. CARLA by prior sonography, December 16, 2019. In conjunction with the prior study, anatomic survey is felt to be complete.
== END ==
LOC: M WHC 11:29
PROVIDERS: ATTEND Advanced Practice Midwife
DX: O34.219 Maternal care for unspecified type scar from previous cesarean delivery (principal)

== ENCOUNTER → 2019-09-21 | Outpatient (REF) | payer OTHER ==
[~2019-09-21] MED LIST changes: +DOCU100C16 PO; +LABE10TAB PO; +PERCOCET PO; +TUMS500C PO
[2019-09-21 17:04] LABS: HEMATOCRIT 33.1 % (36.0-47.0); HEMOGLOBIN 10.5 g/dl (12.0-15.5); MEAN CORPUSCULAR HEMOGLOBIN 29.4 pg (27.0-33.0); MEAN CORPUSCULAR HGB CONC 31.7 g/dl (32.0-36.5); MEAN CORPUSCULAR VOLUME 92.7 fl (80.0-96.0); PLATELET COUNT, AUTOMATED 204 10^3/uL (150-450); RED BLOOD COUNT 3.57 10^6/uL (4.00-5.40); WHITE BLOOD COUNT 10.2 10^3/uL (4.0-10.0)
== END ==
LOC: M PLALAB 11:33
PROVIDERS: ATTEND Advanced Practice Midwife
DX: Z36.9 Encounter for antenatal screening, unspecified (principal)

== ENCOUNTER 2019-10-27 10:07 | Outpatient (CLI) | payer OTHER ==
[~2019-10-27] VITALS: Ht 152.4 cm; Wt 90.3 kg
[~2019-10-27 10:07] MED LIST changes: -DOCU100C16 PO; -LABE10TAB PO; -PERCOCET PO; -TUMS500C PO
[2019-10-27] MEDS ORDERED: PRENTAB9 PO (10:33)
[2019-10-27] MEDS ORDERED: TUMS500C PO (10:33)
[2019-10-27 11:47] LABS: CREATININE,RANDOM URINE 54.6 MG/DL; TOTAL PROTEIN,RANDOM URINE 17.9 MG/DL (0.0-12.0)
[2019-10-27 11:55] LABS: HEMATOCRIT 29.5 % (36.0-47.0); HEMOGLOBIN 9.3 g/dl (12.0-15.5); MEAN CORPUSCULAR HEMOGLOBIN 27.8 pg (27.0-33.0); MEAN CORPUSCULAR HGB CONC 31.5 g/dl (32.0-36.5); MEAN CORPUSCULAR VOLUME 88.3 fl (80.0-96.0); PLATELET COUNT, AUTOMATED 187 10^3/uL (150-450); RED BLOOD COUNT 3.34 10^6/uL (4.00-5.40); WHITE BLOOD COUNT 8.7 10^3/uL (4.0-10.0)
[2019-10-27 12:19] LABS: ALT/SGPT 14 U/L (12-78); BILIRUBIN,TOTAL 0.2 MG/DL (0.2-1.0); GLOMERULAR FILTRATION RATE > 60.0 (>60); LDH LACTATE DEHYDROGENASE 187 U/L (84-246); URIC ACID 3.5 MG/DL (2.6-6.0)
[2019-10-27] MEDS ORDERED: BETAMETHASONE SOLUSPAN 6MG/ML 5ML VIAL (J0702 PER 3MG) IM ONE (14:00)
== END 2019-10-27 14:24 | disposition home or self-care (01) ==
LOC: M LDO 10:07
PROVIDERS: ATTEND Advanced Practice Midwife
DX: O14.93 Unspecified pre-eclampsia, third trimester (principal); O13.3 Gestational [pregnancy-induced] hypertension without significant proteinuria, third trimester; Z3A.32 32 weeks gestation of pregnancy
CPT/HCPCS: 36415; 59025; 82247; 82565; 82570; 83615; 84156; 84450; 84460; 84550; 85027; 96372; G0378; G0463; J0702

== ENCOUNTER 2019-10-28 13:42 | Outpatient (CLI) | payer OTHER ==
[~2019-10-28] VITALS: Ht 152.4 cm; Wt 88.8 kg
[~2019-10-28 13:42] MED LIST changes: +TUMS500C PO
[2019-10-28] MEDS ORDERED: BETAMETHASONE SOLUSPAN 6MG/ML 5ML VIAL (J0702 PER 3MG) IM ONE (15:00)
--- NOTE | 2019-10-28 15:31 | IPNPDOC ---
Text Note Date of Service The patient was seen on 10/28/19. NOTE Subjective: Lennie is a 29-year-old female who is a at 32.6 weeks gestation with a reported EDC of 12/16/19. I have no records available to review. Patient was sent from the office yesterday with preeclamptic symptoms and a severe range BP. She currently denies any preeclamptic symptoms. She reports active movement. She denies leaking of fluid, vaginal bleeding, or contractions. She was diagnosed with preeclampsia. Her spot urine was 0.33. Her course has also been complicated by a history of GHTN, a prior section with a post operative hemorrhage that required a blood transfusion. She presents to L&D for monitoring, serial blood pressures and a second dose of betamethasone. Objective: FHR is 135, moderate variability, positive accelerations, no decelerations. Contractions: none. A+Ox3. VS:BP by manual cuff: 118/61, 132/74, 121/60, 128/68. Temperature 98.4, pulse 115, respiratory rate 20. Respiratory rate is regular with no use of accessory muscles. Abdomen gravid and soft to palpation without tenderness. Assessment: IUP at 32.6 weeks gestation, preeclampsia, normotensive BPs, Category I FHR tracing, betamethasone complete. Plan: Second dose of betamethasone completed today in hospital. Reviewed signs of preeclampsia. Patient has appointment to follow-up in office on Friday with GISELLA Burleson. Encouraged to call office with any changes. Reviewed access to care, kick count, labor signs, and danger signs to report. New letter written for patient to be out of work due to wrong EDC. Discharged to home. Plan of care collaborated with Dr. Franc Murrell. LUCIANO HENSON CNM Oct 28, 2019 15:31
== END 2019-10-28 16:10 | disposition home or self-care (01) ==
LOC: M LDO 13:42
PROVIDERS: ATTEND Advanced Practice Midwife
DX: O14.93 Unspecified pre-eclampsia, third trimester (principal); Z3A.00 Weeks of gestation of pregnancy not specified
CPT/HCPCS: 59025; 96372; G0378; G0463; J0702

== ENCOUNTER 2019-11-08 09:49 | Outpatient (CLI) | payer OTHER ==
[~2019-11-08] VITALS: Ht 152.4 cm; Wt 88.6 kg
[2019-11-08 10:01] VITALS: BP 119/59
[2019-11-08] MEDS ORDERED: LABE10TAB PO (10:04)
[2019-11-08 10:12] VITALS: BP 114/59
[2019-11-08 10:16] VITALS: BP 118/68
[2019-11-08 10:40] VITALS: BP 116/58
--- NOTE | 2019-11-08 11:24 | IPNPDOC ---
Text Note Date of Service The patient was seen on 11/08/19. NOTE Subjective: Lennie is a 29-year-old female who is a at approximately 34 weeks gestation with a reported EDC of 12/16/19. I have no records available to review. Patient was sent from the office today with a normal BP but complaints of a headache that has now resolved and dizziness. She reports active movement. She denies leaking of fluid, vaginal bleeding, or contractions. She was diagnosed with preeclampsia on 10/27/19. Her spot urine was 0.33. Her course has also been complicated by a history of GHTN, a prior section with a post operative hemorrhage that required a blood transfusion. She presents to L&D for monitoring serial blood pressures due to being symptomatic. Objective: VS: see attached. FHR is 130, moderate variability, positive accelerations, no decelerations. Contractions: none. A+Ox3. Respiratory rate is regular with no use of accessory muscles. Abdomen gravid and soft to palpation without tenderness. Assessment: IUP at 34+ weeks gestation, preeclampsia, normotensive BPs, Category I FHR tracing, betamethasone complete. Plan: All normotensive BPs. Encouraged to call office with any changes or preeclamptic symptoms. Reviewed symptoms may be related to her Labetalol. Reviewed access to care, kick count, labor signs, and danger signs to report. Order given for patient to get manual BP cuff. Reviewed severe range BPs and elevated BPs. Patient has growth US on . Plan of care collaborated with Dr. Mcgill. VS,Beka, I+O VS, Beka, I+O Vital Signs Date Time Temp Pulse Resp B/P (MAP) Pulse Ox O2 Delivery O2 Flow Rate FiO2 11/08/19 10:16 118/68 (85) 11/08/19 10:12 95 11/08/19 10:01 98.7 16 LUCIANO HENSON CNM Nov 08, 2019 11:24
== END 2019-11-08 11:02 | disposition home or self-care (01) ==
LOC: M LDO 09:49
PROVIDERS: ATTEND Advanced Practice Midwife
DX: O13.3 Gestational [pregnancy-induced] hypertension without significant proteinuria, third trimester (principal); O14.93 Unspecified pre-eclampsia, third trimester; Z3A.33 33 weeks gestation of pregnancy
CPT/HCPCS: 59025; G0378; G0463

== ENCOUNTER → 2019-11-23 | Outpatient (CLI) | payer OTHER ==
[~2019-11-23] MED LIST changes: +DOCU100C16 PO; +LABE10TAB PO; +PERCOCET PO
== END ==
LOC: M LABSMTC 09:28
PROVIDERS: ATTEND Anesthesiology
DX: Z01.812 Encounter for preprocedural laboratory examination (principal); Z20.828 Contact with and (suspected) exposure to other viral communicable diseases
CPT/HCPCS: C9803; U0003

== ENCOUNTER 2019-11-26 05:04 | Inpatient (IN) | payer OTHER ==
[~2019-11-26] VITALS: Ht 152.4 cm; Wt 98.7 kg
[2019-11-26] VITALS (8 sets, daily range): BP systolic 103–136; BP diastolic 49–63
[~2019-11-26 05:04] MED LIST changes: -DOCU100C16 PO; -PERCOCET PO
[2019-11-26 05:55] LABS: HEMATOCRIT 29.4 % (36.0-47.0); HEMOGLOBIN 9.2 g/dl (12.0-15.5); MEAN CORPUSCULAR HEMOGLOBIN 26.6 pg (27.0-33.0); MEAN CORPUSCULAR HGB CONC 31.3 g/dl (32.0-36.5); PLATELET COUNT, AUTOMATED 197 10^3/uL (150-450); RED BLOOD COUNT 3.46 10^6/uL (4.00-5.40)
[2019-11-26] MEDS ORDERED: BICITRA 30ML SOLN UDC PO ONE (06:00)
[2019-11-26] MEDS ORDERED: ceFAZolin SOD 2 GM in IV 1 EA IV ONE (06:00)
[2019-11-26] MEDS ORDERED: LR 1,000 ML IV ONE (06:00)
[2019-11-26] MEDS ORDERED: LR 1,000 ML IV SCH ×2 (07:00→10:00)
[2019-11-26] MEDS ORDERED: MORPHINE PRES-FREE INJ 10 MG/10 ML VIAL (J2274) As Ordered ONE (07:38)
[2019-11-26] MEDS ORDERED: OXYTOCIN INJ 10 UNITS/ML VIAL (J2590) As Ordered ONE ×2 (07:38→08:24)
[2019-11-26] MEDS ORDERED: METOCLOPRAMIDE INJ 10MG/2ML VIAL (J2765 PER 1) IV PRN (07:46)
[2019-11-26] MEDS ORDERED: ONDANSETRON 4MG/2ML VIAL IV PRN ×2 (07:46→10:00)
[2019-11-26] MEDS ORDERED: NALBUPHINE HCL 10 MG/ML AMP (J2300) IV PRN (07:46)
[2019-11-26] MEDS ORDERED: NALOXONE INJ 0.4MG/1ML VIAL (J2310 PER 1MG) IV PRN ×2 (07:46)
[2019-11-26] MEDS ORDERED: diphenhydrAMINE 50MG/ML VIAL (J1200) IV PRN (07:46)
[2019-11-26] MEDS ORDERED: ePHEDrine SULFATE 25 MG/5 ML(5MG/ML) SYRINGE As Ordered ONE (07:50)
[2019-11-26] MEDS ORDERED: ONDANSETRON 4MG/2ML VIAL As Ordered ONE (08:24)
[2019-11-26] MEDS ORDERED: fentaNYL 100 MCG/2 ML INJECTION (J3010) As Ordered ONE (08:29)
[2019-11-26] MEDS ORDERED: KETOROLAC 60MG 2ML VIAL As Ordered ONE (08:29)
[2019-11-26] MEDS ORDERED: ACETAMINOPHEN 500 MG TAB PO PRN (09:00)
[2019-11-26] MEDS ORDERED: PROMETHAZINE 25 MG TAB PO PRN (09:00)
[2019-11-26] MEDS ORDERED: PRENATAL VITAMINS CHEWABLE TABLET PO SCH (09:00)
[2019-11-26] MEDS ORDERED: RHOGAM 300 MCG (1500 IU) INJ (J2790) IM SCH (09:00)
[2019-11-26] MEDS ORDERED: MEASLES,MUMPS,RUBELLA VACCINE INJ (MMR-II) (90707) SC SCH (09:00)
[2019-11-26] MEDS ORDERED: OXYTOCIN DRIP 30 UNITS in IV 1 EA IV SCH (09:00)
[2019-11-26] MEDS ORDERED: ONDANSETRON 4 MG TAB PO PRN (09:00)
[2019-11-26] MEDS ORDERED: DOCUSATE SODIUM 100 MG CAP PO PRN (09:00)
--- NOTE | 2019-11-26 09:08 | ROOPDOC ---
[facility] Report Of Operation Report of Operation DATE OF PROCEDURE: 11/26/2019 PREPROCEDURE DIAGNOSES: 37+ weeks gestation, chronic hypertension, history of prior low transverse section, history of hemorrhage/uterine atony POSTPROCEDURE DIAGNOSES: Same as preoperative PROCEDURE: Repeat low transverse section SURGEON: Bacilio Sarabia DO FACOG GENETIC TECHNOLOGIST: Leonidas Britt MD (Essential role in retraction, extraction, and closure of all tissue layers) ANESTHESIA: Spinal with Duramorph ESTIMATED BLOOD LOSS: 500 mL. IV FLUIDS: 1500 mL LR URINE OUTPUT: 150 mL COMPLICATIONS: None. PREOPERATIVE ANTIBIOTICS: Ancef 2g IV x 1. COMPLICATIONS: none DATA: Apgars 9 and 9. Birthweight 3320 g, 7 lbs 5 oz. SPECIMENS: none PRIMARY INDICATION FOR : History of prior low transverse , declining TOLAC. DESCRIPTION OF PROCEDURE: The patient was counseled on the risks, benefits, indications and alternatives of the procedure. Informed consent was obtained. She was taken to the operating room with IV running and placed on the operating table in the dorsal supine p osition with a leftward tilt. Regional anesthesia/epidural was bolused and found to be adequate. Sequential compression devices were placed on the lower extremities. A Moore catheter was placed under sterile conditions. She was prepared and draped in normal sterile fashion. A time out was performed per protocol. Epidural anesthesia was again found to be adequate. A Pfannenstiel skin incision was made with the 10 blade. The 10 blade was used to dissect down to the level of the rectus sheath fascia. The rectus sheath pressure was incised midline and this was extended bilaterally with Kearney scissors , and manual stretch. The rectus muscle bellies were dissected off the rectus sheath fascia superiorly and inferiorly using both sharp and blunt dissection. The midline was identified. The peritoneum was identified and entered digitally. The peritoneal opening was extended with manual stretch. The Mobius retractor was placed. The vesicouterine peritoneum was dissected with Metzenbaum scissors to create the bladder flap. A low transverse uterine incision was made with the 10 blade. This was extended with manual stretch. The amniotic sac was punctured, and clear fluid was noted. The head delivered through the hysterotomy without difficulty. The remainder of the body delivered with ease. The cord was doubly clamped and cut, and the baby was handed off to awaiting care. data shown above. The placenta was removed manually. The intrauterine cavity was cleared of all clot and debris. The hysterotomy was closed with 0 Vicryl in running locked fashion. This was reinforced with a second imbricating layer using 0 Vicryl in running fashion. Excellent hemostasis of the hysterotomy was noted. The pelvis was irrigated and the fluid suctioned. The Mobius retractor was removed. The peritoneum was closed with 3-0 Vicryl running fashion. The rectus muscle bellies were reapproximated with interrupted stitches using 3-0 Vicryl. The rectus muscles bellies were hemostatic. The rectus sheath fascia was closed with 0 Vicryl running fashion. The subcutaneous layer was irrigated and the fluid suctioned. Small bleeding vessels were cauterized with Bovie. Excellent hemostasis was noted. The subcutaneous layer was reapproximated with 3-0 Vicryl running fashion. Skin was closed with 3-0 Monocryl in subcuticular fashion. An Optifoam bandage was placed over the closed incision. Sponge, needle and instrument counts were correct per protocol throughout the procedure. The patient tolerated the entire procedure very well. She was transferred to the PACU in stable condition. DO LISA Childs JONATHAN R. DO Nov 26, 2019 09:07
[2019-11-26] MEDS ORDERED: IBUP80TA PO (09:09)
[2019-11-26] MEDS ORDERED: DOCU100C16 PO (09:09)
[2019-11-26] MEDS ORDERED: PERCOCET PO (09:09)
[2019-11-26] MEDS ORDERED: OXYTOCIN 30 UNITS IN 0.9% NaCl 500ML IV BAG (J2590) As Ordered ONE (09:17)
[2019-11-26] MEDS ORDERED: miSOPROStol 200 MCG TAB (S0191) PR ONE (09:30)
[2019-11-26] MEDS: LR 1,000 ML IV SCH ×2 (09:40→18:15)
[2019-11-26] MEDS ORDERED: oxyCODONE 5MG TAB PO PRN (10:00)
[2019-11-26] MEDS ORDERED: HYDROMORPHONE HCL 0.5 MG/ 0.5 ML SYRINGE (J1170 PER 1) IV PRN (10:00)
[2019-11-26] MEDS ORDERED: fentaNYL 100 MCG/2 ML INJECTION (J3010) IV PRN (10:00)
[2019-11-26] MEDS ORDERED: PERCOCET 5MG/325MG TAB As Ordered ONE (10:14)
[2019-11-26] MEDS: PERCOCET 5MG/325MG TAB PO PRN ×2 (10:17→18:13)
[2019-11-26] MEDS: PRENATAL VITAMINS CHEWABLE TABLET PO SCH (11:26)
[2019-11-26] MEDS: CALCIUM CARBONATE 500 MG CHEW U/D PO SCH ×4 (11:26→21:00)
[2019-11-26] MEDS: LABETALOL 100 MG TAB PO SCH ×2 (11:26→21:10)
[2019-11-26] MEDS: KETOROLAC 30 MG/ML 1ML VIAL IV SCH ×2 (15:19→21:10)
[2019-11-27] MEDS: LR 1,000 ML IV SCH ×2 (01:50→09:00)
[2019-11-27 02:00] VITALS: BP 118/55
[2019-11-27] MEDS: PERCOCET 5MG/325MG TAB PO PRN ×5 (03:32→22:25)
[2019-11-27] MEDS: KETOROLAC 30 MG/ML 1ML VIAL IV SCH (03:33)
[2019-11-27 06:00] VITALS: BP 120/57
--- NOTE | 2019-11-27 06:48 | IPNPDOC ---
Text Note Date of Service The patient was seen on 11/27/19. NOTE PO #1 Feels well. Adequate pain management. Tolerating diet. Moore out, due to void. Bottle feeding VSS, afebrile, normotensive Alert, no distress Fundus firm, nontender Dressing dry, intact Lochia rubra scant without odor PO #1, repeat Routine care. Consider discharge in am VS,Fishbone, I+O VS, Fishbone, I+O Vital Signs Date Time Temp Pulse Resp B/P (MAP) Pulse Ox O2 Delivery O2 Flow Rate FiO2 11/27/19 06:00 97.9 80 18 120/57 (78) 98 Room Air I&O- Last 24 Hours up to 6 AM 11/27/19 06:00 Intake Total 3300 ml Output Total 2070 ml Balance 1230 ml Michelle Alvarez CNM Nov 27, 2019 06:48
[2019-11-27] MEDS: PRENATAL VITAMINS CHEWABLE TABLET PO SCH (08:12)
[2019-11-27] MEDS: CALCIUM CARBONATE 500 MG CHEW U/D PO SCH ×4 (08:12→21:00)
[2019-11-27] MEDS: LABETALOL 100 MG TAB PO SCH ×2 (08:13→20:44)
[2019-11-27 09:17] LABS: HEMATOCRIT 25.5 % (36.0-47.0); HEMOGLOBIN 7.7 g/dl (12.0-15.5); MEAN CORPUSCULAR HEMOGLOBIN 26.1 pg (27.0-33.0); MEAN CORPUSCULAR HGB CONC 30.2 g/dl (32.0-36.5); MEAN CORPUSCULAR VOLUME 86.4 fl (80.0-96.0); PLATELET COUNT, AUTOMATED 158 10^3/uL (150-450); RED BLOOD COUNT 2.95 10^6/uL (4.00-5.40); WHITE BLOOD COUNT 8.8 10^3/uL (4.0-10.0)
[2019-11-27 10:00] VITALS: BP 124/57
[2019-11-27] MEDS: IBUPROFEN 800 MG TAB PO SCH ×2 (11:42→18:28)
[2019-11-27 14:23] VITALS: BP 123/57
[2019-11-27 18:10] VITALS: BP 117/59
[2019-11-28 02:00] VITALS: BP 122/58
[2019-11-28] MEDS: IBUPROFEN 800 MG TAB PO SCH ×2 (02:20→11:50)
[2019-11-28 06:00] VITALS: BP 106/55
[2019-11-28] MEDS: PERCOCET 5MG/325MG TAB PO PRN ×2 (06:36→11:51)
[2019-11-28 09:30] VITALS: BP 129/60
[2019-11-28] MEDS: LABETALOL 100 MG TAB PO SCH (09:30)
[2019-11-28] MEDS: PRENATAL VITAMINS CHEWABLE TABLET PO SCH (09:30)
[2019-11-28] MEDS: CALCIUM CARBONATE 500 MG CHEW U/D PO SCH (09:30)
--- NOTE | 2019-12-13 13:02 | DS ---
DATE OF ADMISSION: 11/26/2019 DATE OF DISCHARGE: 11/28/2019 BRIEF HISTORY: A 29-year-old , G2, P1, female at 37+ weeks gestation, with a history of chronic hypertension, who presents for repeat section. HOSPITAL COURSE: On 11/26/2019, the patient underwent repeat low transverse section for a 7 pound 5 ounce . There were no complications. Her postoperative course was unremarkable. She had adequate return of bowel and bladder function. Her postoperative hemoglobin was 7.7 gram/dL. She was deemed stable for discharge on postop day #2. Her blood pressure was stable throughout her course. ADMISSION DIAGNOSES: at 37+ weeks, chronic hypertension, prior C- section. DISCHARGE DIAGNOSIS: Delivered. PROCEDURE: Repeat low transverse section. DISPOSITION: Patient will follow-up with in two weeks. Instructions were reviewed. RED
== END 2019-11-28 12:10 | disposition home or self-care (01) | DRG 787 ==
LOC: M LDI 05:04 → M OBS 10:40
PROVIDERS: ADMIT Obstetrics & Gynecology; ATTEND Obstetrics & Gynecology
PROC: 10D00Z1 Extraction of Products of Conception, Low, Open Approach (ICD-10-PCS; principal; 2019-11-26 07:30)
DX: O34.211 Maternal care for low transverse scar from previous cesarean delivery (principal); O10.02 Pre-existing essential hypertension complicating childbirth; Z37.0 Single live birth

== ENCOUNTER → 2020-07-26 | Outpatient (REF) | payer OTHER ==
[~2020-07-26] MED LIST changes: +DOCU100C16 PO; +LABE100T4 PO; -LABE10TAB PO; +PERCOCET PO
[2020-07-26 13:18] LABS: BASO % 0.6 % (0.0-1.0); EOS # 0.2 10^3/uL (0.0-0.5); EOS % 2.7 % (0.0-3.0); HEMATOCRIT 39.6 % (36.0-47.0); HEMOGLOBIN 12.3 g/dl (12.0-15.5); LYMPH # 2.5 10^3/uL (1.5-5.0); LYMPH % 37.5 % (24.0-44.0); MEAN CORPUSCULAR HEMOGLOBIN 27.2 pg (27.0-33.0); MEAN CORPUSCULAR HGB CONC 31.1 g/dl (32.0-36.5); MEAN CORPUSCULAR VOLUME 87.4 fl (80.0-96.0); MONO # 0.5 10^3/uL (0.0-0.8); MONO % 6.8 % (2.0-8.0); NEUTROPHILS # 3.5 10^3/uL (1.5-8.5); NEUTROPHILS % 52.1 % (36.0-66.0); PLATELET COUNT, AUTOMATED 250 10^3/uL (150-450); RED BLOOD COUNT 4.53 10^6/uL (4.00-5.40); WHITE BLOOD COUNT 6.8 10^3/uL (4.0-10.0)
[2020-07-26 13:40] LABS: ALBUMIN 3.9 GM/DL (3.2-5.2); ALT/SGPT 22 U/L (12-78); BILIRUBIN,TOTAL 0.2 MG/DL (0.2-1.0); BLOOD UREA NITROGEN 11 MG/DL (7-18); CALCIUM LEVEL 9.1 MG/DL (8.5-10.1); CARBON DIOXIDE LEVEL 27 MEQ/L (21-32); CHLORIDE LEVEL 107 MEQ/L (98-107); CREATININE FOR GFR 0.56 MG/DL (0.55-1.30); GLOMERULAR FILTRATION RATE > 60.0 (>60); GLUCOSE, FASTING 91 MG/DL (70-100); POTASSIUM SERUM 4.1 MEQ/L (3.5-5.1); SODIUM LEVEL 139 MEQ/L (136-145); TOTAL PROTEIN 7.6 GM/DL (6.4-8.2)
== END ==
LOC: M SFHCPLAZ 09:27
PROVIDERS: ATTEND Nurse Practitioner Family
DX: Z00.00 Encounter for general adult medical examination without abnormal findings (principal)

== ENCOUNTER → 2022-01-21 | Outpatient (CLI) | payer OTHER ==
[~2022-01-21] MED LIST changes: -LABE100T4 PO; +LABE100T6 PO
== END ==
LOC: M SLEEP HO 12:49
PROVIDERS: ATTEND Nurse Practitioner Family
DX: R40.0 Somnolence (principal); R06.83 Snoring

== ENCOUNTER → 2022-07-19 | Outpatient (REF) | payer OTHER | LOC: M SFHCWAGY 13:09 | PROVIDERS: ATTEND Obstetrics & Gynecology | DX: Z12.4 Encounter for screening for malignant neoplasm of cervix (principal) | CPT/HCPCS: 87624; G0123 ==

== ENCOUNTER → 2022-10-18 | Outpatient (REF) | payer OTHER | LOC: M SFHCWAGY 16:44 | PROVIDERS: ATTEND Nurse Practitioner Family | DX: R39.15 Urgency of urination (principal); Z11.3 Encounter for screening for infections with a predominantly sexual mode of transmission ==

== ENCOUNTER → 2022-12-23 | Outpatient (CLI) | payer OTHER | LOC: M PLAIMG 10:58 | PROVIDERS: ATTEND Nurse Practitioner Family | DX: R05.9 Cough, unspecified (principal) ==

== ENCOUNTER → 2023-02-11 | Outpatient (CLI) | payer OTHER ==
[2023-02-11 12:43] LABS: BASO % 0.6 % (0.0-1.0); EOS # 0.1 10^3/uL (0.0-0.5); EOS % 1.3 % (0.0-3.0); HEMATOCRIT 37.4 % (36.0-47.0); HEMOGLOBIN 12.1 g/dl (12.0-15.5); LYMPH % 36.9 % (24.0-44.0); MEAN CORPUSCULAR HEMOGLOBIN 28.5 pg (27.0-33.0); MEAN CORPUSCULAR HGB CONC 32.4 g/dl (32.0-36.5); MONO # 0.3 10^3/uL (0.0-0.8); MONO % 6.3 % (2.0-8.0); NEUTROPHILS # 2.9 10^3/uL (1.5-8.5); NEUTROPHILS % 54.7 % (36.0-66.0); PLATELET COUNT, AUTOMATED 267 10^3/uL (150-450); RED BLOOD COUNT 4.25 10^6/uL (4.00-5.40); WHITE BLOOD COUNT 5.3 10^3/uL (4.0-10.0)
[2023-02-11 13:16] LABS: TOTAL 25(OH) VITAMIN D 6.8 NG/ML (20.0-100.0)
[2023-02-11 13:18] LABS: THYROID STIMULATING HORMONE 2.083 uIU/ML (0.55-4.78)
[2023-02-11 13:19] LABS: ALBUMIN 3.8 G/DL (3.2-5.2); ALKALINE PHOSPHATASE 70 U/L (46-116); ALT/SGPT 14 U/L (7.0-40); AST/SGOT 12 U/L (<34); BILIRUBIN,TOTAL 0.5 MG/DL (0.3-1.2); BLOOD UREA NITROGEN 11 MG/DL (9-23); CALCIUM LEVEL 8.9 MG/DL (8.5-10.1); CARBON DIOXIDE LEVEL 26 MMOL/L (20-31); CHLORIDE LEVEL 106 MMOL/L (98-107); CHOLESTEROL LEVEL 170 MG/DL (<200); CHOLESTEROL RISK RATIO 4.21 (<5); FREE T4 1.17 NG/DL (0.89-1.76); GLOMERULAR FILTRATION RATE > 60.0 (>60); GLUCOSE, FASTING 82 MG/DL (60-100); HDL CHOLESTEROL 40.3 MG/DL (>40); LDL CHOLESTEROL 96.9 MG/DL (<100); NON-HDL-C 129.7 MG/DL; POTASSIUM SERUM 4.3 MMOL/L (3.5-5.1); SODIUM LEVEL 139 MMOL/L (136-145); TOTAL PROTEIN 7.1 G/DL (5.7-8.2); TRIGLYCERIDES LEVEL 164 MG/DL (<150)
== END ==
LOC: M PLALAB 08:40
PROVIDERS: ATTEND Nurse Practitioner Family
DX: Z00.00 Encounter for general adult medical examination without abnormal findings (principal); E78.5 Hyperlipidemia, unspecified; E55.9 Vitamin D deficiency, unspecified; R53.83 Other fatigue

== ENCOUNTER 2023-02-21 19:34 | Emergency (ER) | payer OTHER ==
[~2023-02-21] VITALS: Ht 149.9 cm; Wt 77.9 kg
[2023-02-21] MEDS ORDERED: methylPREDNISolone 125MG 2ML VIAL IM ONE (21:55)
[2023-02-21] MEDS ORDERED: MEDR4PAK PO (23:46)
[2023-02-21 23:52] VITALS: BP 116/68; TEMP 98.6; O2SAT 99
== END 2023-02-22 00:37 | disposition home or self-care (01) ==
LOC: M ED 19:34
DX: S43.52XA Sprain of left acromioclavicular joint, initial encounter (principal); Y92.9 Unspecified place or not applicable; Y93.9 Activity, unspecified; Y99.9 Unspecified external cause status; F17.210 Nicotine dependence, cigarettes, uncomplicated; X58.XXXA Exposure to other specified factors, initial encounter
CPT/HCPCS: 73000; 73030; 96372; 99283; J2930

== ENCOUNTER → 2023-04-16 | Outpatient (REF) | payer OTHER ==
[~2023-04-16] MED LIST changes: +MEDR4PAK PO
== END ==
LOC: M SFHCWAGY 12:57
PROVIDERS: ATTEND Obstetrics & Gynecology
DX: N90.89 Other specified noninflammatory disorders of vulva and perineum (principal)

== ENCOUNTER → 2023-05-06 | Outpatient (REF) | payer OTHER | LOC: M SFHCWAGY 17:56 | PROVIDERS: ATTEND Obstetrics & Gynecology | DX: N90.89 Other specified noninflammatory disorders of vulva and perineum (principal) ==

== ENCOUNTER → 2023-09-24 | Outpatient (REF) | payer OTHER ==
[2023-09-26 12:27] LABS: HPV APTIMA Not Detected (Not Detected)
== END ==
LOC: M SFHCWAGY 15:15
PROVIDERS: ATTEND Obstetrics & Gynecology
DX: Z12.4 Encounter for screening for malignant neoplasm of cervix (principal)
CPT/HCPCS: 87624; G0123

== ENCOUNTER → 2024-02-23 | Outpatient (CLI) | payer OTHER ==
[2024-02-23 13:59] LABS: BASO # 0.1 10^3/uL (0.0-0.2); BASO % 0.6 % (0.0-1.0); EOS # 0.1 10^3/uL (0.0-0.5); EOS % 1.4 % (0.0-3.0); HEMATOCRIT 39.7 % (36.0-47.0); HEMOGLOBIN 12.9 g/dl (12.0-15.5); LYMPH # 2.3 10^3/uL (1.5-5.0); LYMPH % 27.9 % (24.0-44.0); MEAN CORPUSCULAR HGB CONC 32.5 g/dl (32.0-36.5); MEAN CORPUSCULAR VOLUME 89.2 fl (80.0-96.0); MONO # 0.5 10^3/uL (0.0-0.8); MONO % 5.5 % (2.0-8.0); NEUTROPHILS # 5.2 10^3/uL (1.5-8.5); NEUTROPHILS % 64.4 % (36.0-66.0); PLATELET COUNT, AUTOMATED 243 10^3/uL (150-450); RED BLOOD COUNT 4.45 10^6/uL (4.00-5.40); WHITE BLOOD COUNT 8.1 10^3/uL (4.0-10.0)
[2024-02-23 14:15] LABS: ALBUMIN 3.8 G/DL (3.2-5.2); ALKALINE PHOSPHATASE 70 U/L (35-104); ALT/SGPT 14 U/L (7.0-40); AST/SGOT 12 U/L (<34); BILIRUBIN,TOTAL 0.4 MG/DL (0.3-1.2); BLOOD UREA NITROGEN 8 MG/DL (9-23); CALCIUM LEVEL 9.3 MG/DL (8.5-10.1); CARBON DIOXIDE LEVEL 26 MMOL/L (20-31); CHLORIDE LEVEL 108 MMOL/L (98-107); CHOLESTEROL LEVEL 180 MG/DL (<200); CHOLESTEROL RISK RATIO 4.24 (<5); CREATININE FOR GFR 0.59 MG/DL (0.55-1.30); GLOMERULAR FILTRATION RATE > 60.0 (>60); GLUCOSE, FASTING 88 MG/DL (60-100); HDL CHOLESTEROL 42.4 MG/DL (>40); IRON (FE) 50 UG/DL (50-170); NON-HDL-C 137.6 MG/DL; POTASSIUM SERUM 4.3 MMOL/L (3.5-5.1); SODIUM LEVEL 140 MMOL/L (136-145); TOTAL IRON BINDING CAPACITY 384 UG/DL (250-425); TOTAL PROTEIN 7.2 G/DL (5.7-8.2); TRIGLYCERIDES LEVEL 108 MG/DL (<150)
[2024-02-23 14:16] LABS: FREE T4 1.06 NG/DL (0.89-1.76); THYROID STIMULATING HORMONE 1.764 uIU/ML (0.55-4.78)
== END ==
LOC: M PLALAB 09:45
PROVIDERS: ATTEND Nurse Practitioner Family
DX: Z00.00 Encounter for general adult medical examination without abnormal findings (principal); L65.9 Nonscarring hair loss, unspecified; E78.5 Hyperlipidemia, unspecified; E55.9 Vitamin D deficiency, unspecified

== ENCOUNTER → 2025-02-25 | Outpatient (CLI) | payer OTHER ==
[~2025-02-25] MED LIST changes: -LABE100T6 PO; +LABE100T91 PO
[2025-02-25 13:19] LABS: IRON (FE) 79 UG/DL (50-170); PERCENT SATURATION 19.5 % (13.2-45.0)
[2025-02-25 13:20] LABS: ALT/SGPT 13 U/L (7.0-40); AST/SGOT 15 U/L (<34); CALCIUM LEVEL 9.1 MG/DL (8.5-10.1); CARBON DIOXIDE LEVEL 28 MMOL/L (20-31); CHLORIDE LEVEL 103 MMOL/L (98-107); CHOLESTEROL LEVEL 166 MG/DL (<200); CHOLESTEROL RISK RATIO 3.59 (<5); CREATININE FOR GFR 0.63 MG/DL (0.55-1.30); GLOMERULAR FILTRATION RATE > 90.0 (>60); LDL CHOLESTEROL 92.8 MG/DL (<100); NON-HDL-C 119.8 MG/DL; POTASSIUM SERUM 4.1 MMOL/L (3.5-5.1); SODIUM LEVEL 139 MMOL/L (136-145); TRIGLYCERIDES LEVEL 135 MG/DL (<150)
[2025-02-25 13:25] LABS: FREE T4 1.26 NG/DL (0.89-1.76)
[2025-02-25 13:44] LABS: BASO # 0.0 10^3/uL (0.0-0.2); BASO % 0.4 % (0.0-1.0); EOS # 0.1 10^3/uL (0.0-0.5); EOS % 1.1 % (0.0-3.0); LYMPH # 2.4 10^3/uL (1.5-5.0); LYMPH % 33.8 % (24.0-44.0); MONO # 0.4 10^3/uL (0.0-0.8); MONO % 5.9 % (2.0-8.0); NEUTROPHILS # 4.1 10^3/uL (1.5-8.5); NEUTROPHILS % 58.5 % (36.0-66.0); PLATELET COUNT, AUTOMATED 296 10^3/uL (150-450)
== END ==
LOC: M PLALAB 09:35
PROVIDERS: ATTEND Nurse Practitioner Family
DX: Z00.00 Encounter for general adult medical examination without abnormal findings (principal); E78.5 Hyperlipidemia, unspecified; L65.9 Nonscarring hair loss, unspecified; E55.9 Vitamin D deficiency, unspecified